=== PATIENT | female | born 1950 | race Hispanic/Latino ===

== ENCOUNTER 2018-08-06 12:37 | Emergency (ER) | payer OTHER | END 2018-08-06 14:29 | disposition home or self-care (01) | LOC: EDH 12:37 | DX: S13.4XXA Sprain of ligaments of cervical spine, initial encounter (principal); I10 Essential (primary) hypertension; E78.5 Hyperlipidemia, unspecified; K21.9 Gastro-esophageal reflux disease without esophagitis; F32.9 Major depressive disorder, single episode, unspecified; M62.838 Other muscle spasm; Z88.8 Allergy status to other drugs, medicaments and biological substances; V49.59XA Passenger injured in collision with other motor vehicles in traffic accident, initial encounter; Y93.89 Activity, other specified; Y92.89 Other specified places as the place of occurrence of the external cause; Y99.8 Other external cause status | CPT/HCPCS: 72040 ==